=== PATIENT | male | born 1965 | race Caucasian/White ===

== ENCOUNTER → 2017-04-19 | Outpatient (CLI) | payer OTHER ==
[~2017-04-19] MED LIST: CRESTOR10 MG; LEVOTHYROXINE112 MCG; LEVOTHYROXINE150 MCG PO; PRAVASTATIN SOD40 MG PO
[2017-04-20 14:44] LABS: Flow Clinical Information NOT PROVIDED (()); Flow Number of Markers 22 (()); Flow Spec Viability 19 % (()); Flow Specimen Type LYMPH NODE (())
== END | disposition home or self-care (01) ==
LOC: OPR 10:00 → RAD 10:10 → EDSTATUS 11:00 → RAD 11:00 → OPR 11:00
PROVIDERS: Family Medicine
DX: C76.0 Malignant neoplasm of head, face and neck (principal); E03.9 Hypothyroidism, unspecified
CPT/HCPCS: 76942; 88305; 88341 TC; 88342 TC